=== PATIENT | male | born 1945 | race Caucasian/White ===

== ENCOUNTER 2018-12-05 14:46 | Emergency (ER) | payer MEDICARE, OTHER ==
[~2018-12-05] VITALS: Ht 177.8 cm; Wt 95.3 kg
[2018-12-05 15:02] VITALS: BP_SYST 122
--- NOTE | 2018-12-05 15:37 | NUR ---
Patient given written and verbal discharge instructions and verbalizes understanding. ER MD discussed with patient the results and treatment provided. Patient in stable condition. ID arm band removed. Rx of keflex,motrin given. Patient educated on pain management and to follow up with PMD. Pain Scale 0. Opportunity for questions provided and answered. Medication side effect fact sheet provided.
== END 2018-12-05 15:37 | disposition home or self-care (01) ==
LOC: SED 14:46
DX: H04.302 Unspecified dacryocystitis of left lacrimal passage (principal); H10.89 Other conjunctivitis; E78.5 Hyperlipidemia, unspecified; R03.0 Elevated blood-pressure reading, without diagnosis of hypertension; Z90.49 Acquired absence of other specified parts of digestive tract
CPT/HCPCS: 99283

== ENCOUNTER 2020-10-11 12:21 | Emergency (ER) | payer OTHER ==
[~2020-10-11] VITALS: Ht 177.8 cm; Wt 92.1 kg
[2020-10-11 12:29] VITALS: BP_SYST 134
--- NOTE | 2020-10-11 12:30 | NUR ---
Patient to ER bed 6 to gown for evaluation. Side rails up. Report given to Nikole SCHMITT.
--- NOTE | 2020-10-11 12:35 | NUR ---
ER DR. FLYNN AT THE BEDSIDE EVALUATING PT
--- NOTE | 2020-10-11 12:36 | NUR ---
PT CAME INTO ER FOR WORSENING LUU THAT STARTED 2 DAYS AGO. REPORTS 9/10 SHARP PAIN TO BACK OF HEAD. STATES HE HAD SIMILAR INCIDENT 2 YEARS AGO AND HAD HEAD CT AT THAT TIME TO R/O ANERUYISM. PT IS AAOX4, V/S STABLE.
[2020-10-11] MEDS ORDERED: METOCLOPRAMIDE HCL 10 MG/2 ML VIAL ONE (12:40)
[2020-10-11] MEDS ORDERED: METOCLOPRAMIDE HCL 10 MG/2 ML VIAL IM ONE (12:45)
[2020-10-11] MEDS ORDERED: DIPHENHYDRAMINE INJ 50 MG/ML VIAL IM ONE (12:45)
--- NOTE | 2020-10-11 12:45 | NUR ---
LAB AT THE BEDSIDE FOR BLOOD DRAW
--- NOTE | 2020-10-11 12:56 | NUR ---
Patient transported to radiology via WC, accompanied by STAFF.
[2020-10-11 13:11] LABS: BASOPHILS # (AUTO) 0.1 K/uL (0.0-0.2); BASOPHILS % (AUTO) 0.9 % (0.0-2.0); EOSINOPHILS # (AUTO) 0.1 K/uL (0.0-0.4); EOSINOPHILS % (AUTO) 1.3 % (0.0-4.0); HEMATOCRIT 41.6 % (36-54); HEMOGLOBIN 13.7 g/dL (14.0-18.0); LYMPHOCYTES # (AUTO) 1.6 K/uL (1.0-5.5); LYMPHOCYTES % (AUTO) 23.2 % (20.5-51.5); MEAN CORPUSCULAR HEMOGLOBIN 28 pg (27-31); MEAN CORPUSCULAR HGB CONC 33 % (32-36); MEAN CORPUSCULAR VOLUME 84 fL (79.0-98.0); MONOCYTES # (AUTO) 0.5 K/uL (0.0-1.0); MONOCYTES % (AUTO) 7.8 % (1.7-9.3); NEUTROPHILS # (AUTO) 4.6 K/uL (1.8-7.7); NEUTROPHILS % (AUTO) 66.8 % (40.0-70.0); PLATELET COUNT (AUTO) 229 K/uL (130-430); RED BLOOD CELL COUNT(AUTO) 4.96 MIL/uL (4.2-6.2); RED CELL DISTRIBUTION WIDTH 14.7 % (9.0-15.0); WHITE BLOOD COUNT (AUTO) 6.9 K/uL (4.8-10.8)
[2020-10-11 13:14] LABS: ALANINE AMINOTRANSFERASE 24 U/L (12-78); ALBUMIN 3.3 g/dL (3.4-4.8); ANION GAP 8 (5-15); ASPARTATE AMINOTRANSFERASE 17 U/L (10-37); C-REACTIVE PROTEIN QUANT 0.8 mg/dL (0-0.5); CALCIUM 8.5 mg/dL (8.4-11.0); CHLORIDE 106 mmol/L (98-107); CREATININE 0.75 mg/dL (0.55-1.30); GLUCOSE 100 mg/dL (70-99); POTASSIUM 3.9 mmol/L (3.5-5.1); SODIUM SERUM 137 mmol/L (136-145); TOTAL BILIRUBIN 0.7 mg/dL (0.0-1.0); UREA NITROGEN, BLOOD 19 mg/dL (8-21)
[2020-10-11] MEDS ORDERED: IBUP-1969 PO (13:29)
[2020-10-11] MEDS ORDERED: HYDR-3110 PO (13:29)
--- NOTE | 2020-10-11 13:35 | NUR ---
Patient given written and verbal discharge instructions and verbalizes understanding. ER MD discussed with patient the results and treatment provided. Patient in stable condition. ID arm band removed. IV c Rx of MOTRIN AND NORCO given. Patient educated on pain management and to follow up with PMD. Pain Scale 0/10. Opportunity for questions provided and answered. Medication side effect fact sheet provided.
[2020-10-11 13:37] VITALS: BP_SYST 132
[2020-10-11 15:37] LABS: ERYTHROCYTE SEDIMENTATION RATE 6 MM/HR (0-15)
== END 2020-10-11 13:37 | disposition home or self-care (01) ==
LOC: SED 12:21
DX: R51.9 Headache, unspecified (principal); E78.5 Hyperlipidemia, unspecified
CPT/HCPCS: 36415; 70450; 76376; 80053; 85025; 85651; 86140; 96372; 99284; J1200; J2765

== ENCOUNTER 2020-12-19 15:00 | Emergency (ER) | payer OTHER ==
[~2020-12-19] VITALS: Ht 177.8 cm; Wt 93.4 kg
[~2020-12-19 15:00] MED LIST: HYDR-4280 PO; IBUP-1969 PO
[2020-12-19 15:03] VITALS: BP_SYST 130
[2020-12-19] MEDS ORDERED: ACETAMINOPHEN 500 MG TABLET PO ONE (15:30)
[2020-12-19 15:40] LABS: BILIRUBIN,URINE NEGATIVE (NEGATIVE); BLOOD, URINE 2+ (NEGATIVE); CLARITY/URINE CLEAR (CLEAR); COLOR,URINE YELLOW (YELLOW); GLUCOSE,URINE NEGATIVE (NEGATIVE); KETONES,URINE NEGATIVE (NEGATIVE); LEUKOCYTE ESTERASE ,URINE NEGATIVE (NEGATIVE); NITRITE, URINE NEGATIVE (NEGATIVE); PH,URINE 5.5 (5.0-8.0); PROTEIN URINE NEGATIVE (NEGATIVE); UROBILINOGEN,URINE 0.2 (0.2-1.0)
[2020-12-19 15:46] LABS: RBC,URINE 0-3 /HPF (0-3); WBC,URINE NONE SEEN /HPF (0-3)
[2020-12-19 15:47] LABS: BACTERIA,URINE None Seen /HPF (None Seen); MUCUS,URINE None Seen /LPF (None Seen)
[2020-12-19 15:47] LABS: BASOPHILS # (AUTO) 0.1 K/uL (0.0-0.2); BASOPHILS % (AUTO) 1.4 % (0.0-2.0); EOSINOPHILS # (AUTO) 0.1 K/uL (0.0-0.4); EOSINOPHILS % (AUTO) 1.1 % (0.0-4.0); HEMATOCRIT 41.7 % (36-54); HEMOGLOBIN 13.7 g/dL (14.0-18.0); LYMPHOCYTES # (AUTO) 1.5 K/uL (1.0-5.5); LYMPHOCYTES % (AUTO) 21.2 % (20.5-51.5); MEAN CORPUSCULAR HEMOGLOBIN 28 pg (27-31); MEAN CORPUSCULAR HGB CONC 33 % (32-36); MEAN CORPUSCULAR VOLUME 84 fL (79.0-98.0); MONOCYTES # (AUTO) 0.4 K/uL (0.0-1.0); MONOCYTES % (AUTO) 6.2 % (1.7-9.3); NEUTROPHILS # (AUTO) 4.9 K/uL (1.8-7.7); NEUTROPHILS % (AUTO) 70.1 % (40.0-70.0); PLATELET COUNT (AUTO) 240 K/uL (130-430); RED BLOOD CELL COUNT(AUTO) 4.99 MIL/uL (4.2-6.2); RED CELL DISTRIBUTION WIDTH 14.6 % (9.0-15.0)
[2020-12-19 15:52] LABS: ANION GAP 2 (5-15); CALCIUM 8.3 mg/dL (8.4-11.0); CHLORIDE 100 mmol/L (98-107); CREATININE 0.76 mg/dL (0.55-1.30); GLUCOSE 97 mg/dL (70-99); POTASSIUM 3.8 mmol/L (3.5-5.1); SODIUM SERUM 125 mmol/L (136-145); UREA NITROGEN, BLOOD 21 mg/dL (8-21)
[2020-12-19 16:20] VITALS: BP_SYST 130
== END 2020-12-19 16:18 | disposition home or self-care (01) ==
LOC: SED 15:00
DX: S00.11XA Contusion of right eyelid and periocular area, initial encounter (principal); E87.1 Hypo-osmolality and hyponatremia; E87.5 Hyperkalemia; W18.09XA Striking against other object with subsequent fall, initial encounter; Y93.89 Activity, other specified; Y92.89 Other specified places as the place of occurrence of the external cause; Y99.8 Other external cause status
CPT/HCPCS: 36415; 70450-TC; 80048; 81000; 84484; 85025; 93005; 99284; J7040

== ENCOUNTER 2021-08-01 12:15 | Emergency (ER) | payer OTHER, MEDICAID ==
[~2021-08-01] VITALS: Ht 177.8 cm; Wt 97.5 kg
[2021-08-01 12:20] VITALS: BP_SYST 135
--- NOTE | 2021-08-01 12:20 | NUR ---
PT IN ER WAITING [facility] FOR AVAILABLE BED.
--- NOTE | 2021-08-01 12:22 | NUR ---
PT CAME IN FROM HOME C/O LEFT HAND/WRIST SWELLING X 2 DAYS WITH PAIN. DENIES NUMBNESS OR TINGLING. STATES HE IS SUPPOSED TO HAVE SURGURY ON THAT HAND FOR CARPUL TUNNEL ON 08/06/21 AT [facility]. DENIES INJURY OR TRAUMA TO AREA. PT IS AMBULATORY WITH WALKER, AAOX4, V/S STABLE
[2021-08-01 13:21] LABS: BASOPHILS # (AUTO) 0.1 K/uL (0.0-0.2); BASOPHILS % (AUTO) 0.9 % (0.0-2.0); EOSINOPHILS # (AUTO) 0.1 K/uL (0.0-0.4); EOSINOPHILS % (AUTO) 1.4 % (0.0-4.0); HEMATOCRIT 41.2 % (36-54); HEMOGLOBIN 13.6 g/dL (14.0-18.0); LYMPHOCYTES # (AUTO) 1.4 K/uL (1.0-5.5); LYMPHOCYTES % (AUTO) 16.3 % (20.5-51.5); MEAN CORPUSCULAR HEMOGLOBIN 26 pg (27-31); MEAN CORPUSCULAR HGB CONC 33 % (32-36); MEAN CORPUSCULAR VOLUME 79 fL (79.0-98.0); MONOCYTES # (AUTO) 0.6 K/uL (0.0-1.0); MONOCYTES % (AUTO) 7.4 % (1.7-9.3); NEUTROPHILS # (AUTO) 6.4 K/uL (1.8-7.7); PLATELET COUNT (AUTO) 231 K/uL (130-430); RED BLOOD CELL COUNT(AUTO) 5.24 MIL/uL (4.2-6.2); RED CELL DISTRIBUTION WIDTH 15.7 % (9.0-15.0); WHITE BLOOD COUNT (AUTO) 8.6 K/uL (4.8-10.8)
[2021-08-01 14:03] LABS: CHLORIDE 107 mmol/L (98-107); POTASSIUM 3.8 mmol/L (3.5-5.1); SODIUM SERUM 142 mmol/L (136-145)
[2021-08-01 14:04] LABS: CALCIUM 7.9 mg/dL (8.4-11.0); CREATININE 0.91 mg/dL (0.55-1.30); GLUCOSE 124 mg/dL (70-99); UREA NITROGEN, BLOOD 21 mg/dL (8-21)
[2021-08-01 14:08] LABS: ALANINE AMINOTRANSFERASE 24 U/L (12-78); ALBUMIN 3.1 g/dL (3.4-4.8); ANION GAP 10 (5-15); ASPARTATE AMINOTRANSFERASE 16 U/L (10-37); TOTAL BILIRUBIN 0.9 mg/dL (0.0-1.0); URIC ACID 3.8 mg/dL (2.4-7.0)
[2021-08-01 14:19] LABS: ERYTHROCYTE SEDIMENTATION RATE 15 MM/HR (0-15)
--- NOTE | 2021-08-01 15:30 | NUR ---
ER DR. FLYNN EXAMINING PT
[2021-08-01] MEDS ORDERED: IBUP-1969 PO (15:54)
[2021-08-01] MEDS ORDERED: HYDR-3917 PO (15:54)
[2021-08-01 16:29] VITALS: BP_SYST 135
--- NOTE | 2021-08-01 16:30 | NUR ---
Patient given written and verbal discharge instructions and verbalizes understanding. ER MD discussed with patient the results and treatment provided. Patient in stable condition. ID arm band removed. IV catheter removed intact and dressing applied, no active bleeding. Rx of NORCO AND IBUPROFEN given. Patient educated on pain management and to follow up with PMD. Pain Scale 0/10. Opportunity for questions provided and answered. Medication side effect fact sheet provided.
== END 2021-08-01 16:30 | disposition home or self-care (01) ==
LOC: SED 12:15
DX: M25.432 Effusion, left wrist (principal); Z79.899 Other long term (current) drug therapy
CPT/HCPCS: 36415; 80053; 84550; 85025; 85651-TC; 99284

== ENCOUNTER 2023-07-07 09:31 | Emergency (ER) | payer BC, MEDICAID ==
[~2023-07-07] VITALS: Ht 172.7 cm; Wt 90.7 kg
[~2023-07-07 09:31] MED LIST changes: +HYDR-3917 PO
[2023-07-07 09:33] VITALS: BP_SYST 143; PULSE 89; RESP 18; TEMP 97.1; O2SAT 96
[2023-07-07 12:47] VITALS: BP_SYST 134; PULSE 80; RESP 20; TEMP 98; O2SAT 98
== END 2023-07-07 12:47 | disposition home or self-care (01) ==
LOC: SED 09:31
DX: S39.012A Strain of muscle, fascia and tendon of lower back, initial encounter (principal); S30.0XXA Contusion of lower back and pelvis, initial encounter; E78.5 Hyperlipidemia, unspecified; Z79.899 Other long term (current) drug therapy; W01.0XXA Fall on same level from slipping, tripping and stumbling without subsequent striking against object, initial encounter; Y93.89 Activity, other specified; Y92.89 Other specified places as the place of occurrence of the external cause; Y99.8 Other external cause status
CPT/HCPCS: 72110; 72220-TC; 99284